=== PATIENT | male | born 1990 | race African-American/Black ===

== ENCOUNTER 2017-10-11 04:45 | Emergency (ER) | payer MEDICAID ==
[~2017-10-11] VITALS: Ht 172.7 cm; Wt 61.0 kg
[2017-10-11] MEDS ORDERED: IBUPROFEN 600MG TABLET PO ONE (10:15)
[2017-10-11 10:49] VITALS: BP 118/82
== END 2017-10-11 11:30 | disposition home or self-care (01) ==
LOC: ER 04:45
DX: S39.012A Strain of muscle, fascia and tendon of lower back, initial encounter (principal); F17.200 Nicotine dependence, unspecified, uncomplicated; V43.62XA Car passenger injured in collision with other type car in traffic accident, initial encounter; Y93.89 Activity, other specified; Y92.89 Other specified places as the place of occurrence of the external cause; Y99.8 Other external cause status
CPT/HCPCS: 99282